=== PATIENT | male | born 1990 | race Caucasian/White ===

== ENCOUNTER 2019-06-08 07:33 | Emergency (ER) | payer OTHER, SELFPAY ==
[~2019-06-08] VITALS: Ht 182.9 cm; Wt 83.9 kg
[2019-06-08 07:50] VITALS: Ht 182.9 cm; Wt 83.9 kg
[2019-06-08 09:14] VITALS: BP 132/89
== END 2019-06-08 11:40 | disposition home or self-care (01) ==
LOC: ED 07:33
DX: Z13.89 Encounter for screening for other disorder (principal); R50.9 Fever, unspecified
CPT/HCPCS: U0002